=== PATIENT | female | born 1965 | race Hispanic/Latino ===

== ENCOUNTER 2018-09-05 00:41 | Inpatient (IN) | payer OTHER, SELFPAY ==
[2018-09-05] MEDS ORDERED: CARDIZEM IV ONE ×2 (02:32→03:34)
--- NOTE | 2018-09-05 02:38 | Emergency Department Report ---
HPI - General Chief Complaint: Chest Pain Time Seen by Provider: 09/05/18 02:24 - HPI HPI: Room 3 The patient is a 52-year-old female presenting with a chief complaint of chest pain and palpitations. The patient states approximately 3 hours prior to her arrival she began developing palpitations associated with chest pain described as aching and tightness in nature. Patient states her left arm went numb and she experienced shortness of breath. Patient denies nausea/vomiting or diaphoresis. Patient states she's never been diagnosed with atrial fibrillation in the past. Patient states she's never had a stress test or cardiac catheterization Location: Chest Duration: Onset 3 hours prior to arrival Quality: Aching Severity: Moderate Modifying factors: [see above] Context: [see above] Mode of transportation: [not driving] ED Past Medical Hx - Past Medical History Hx Hypertension: Yes - Surgical History Hx Cholecystectomy: Yes - Family History Family history: no significant - Social History Smoking Status: Current Every Day Smoker (1/2 pack per day) Substance Use Type: None (denies illicit drug use) ED Review of Systems ROS: Stated complaint: CP/R ARM NUMBNESS Other details as noted in HPI Constitutional: denies: diaphoresis Eyes: denies: eye pain ENT: denies: throat pain Respiratory: shortness of breath Cardiovascular: chest pain, palpitations Endocrine: no symptoms reported Gastrointestinal: denies: nausea, vomiting Genitourinary: denies: dysuria Musculoskeletal: denies: back pain Neurological: numbness. denies: headache Physical Exam - Physical Exam Vital Signs: Vital Signs 09/05/18 09/05/18 09/05/18 01:30 01:36 02:02 Temperature 97.9 F Pulse Rate 144 H 138 H 154 H Respiratory 14 14 15 Rate Blood Pressure 131/54 Blood Pressure 131/54 [Left] O2 Sat by Pulse 94 95 96 Oximetry Physical Exam: GENERAL: The patient is well-developed well-nourished female lying on stretcher not appearing to be in acute distress. [] HEENT: Normocephalic. Atraumatic. Extraocular motions are intact. Patient has moist mucous membranes. NECK: Supple. Trachea midline CHEST/LUNGS: Clear to auscultation. There is no respiratory distress noted. HEART/CARDIOVASCULAR: Irregularly irregular. There is tachycardia. There is no gallop rub or murmur. ABDOMEN: Abdomen is soft, nontender. Patient has normal bowel sounds. There is no abdominal distention. SKIN: There is no rash. There is no edema. There is no diaphoresis. NEURO: The patient is awake, alert, and oriented. The patient is cooperative. The patient has normal speech MUSCULOSKELETAL: There is no evidence of acute injury. ED Course Vital Signs 09/05/18 09/05/18 09/05/18 01:30 01:36 02:02 Temperature 97.9 F Pulse Rate 144 H 138 H 154 H Respiratory 14 14 15 Rate Blood Pressure 131/54 Blood Pressure 131/54 [Left] O2 Sat by Pulse 94 95 96 Oximetry ED Medical Decision Making - Lab Data Result diagrams: 09/05/18 02:34 09/05/18 02:34 Laboratory Tests 09/05/18 09/05/18 09/05/18 02:34 02:34 02:34 WBC 9.5 RBC 4.58 Hgb 13.4 Hct 39.8 MCV 87 MCH 29 MCHC 34 RDW 14.8 Plt Count 194 Lymph % (Auto) 31.4 [place] % (Auto) 5.3 Eos % (Auto) 3.4 Baso % (Auto) 0.7 Lymph # 3.0 [place] # 0.5 Eos # 0.3 Baso # 0.1 Seg Neutrophils % 59.2 Seg Neutrophils # 5.6 PT 13.0 INR 0.93 APTT 21.6 L Sodium Potassium Chloride Carbon Dioxide Anion Gap BUN Creatinine Estimated GFR BUN/Creatinine Ratio Glucose Calcium Magnesium 2.00 Total Creatine Kinase 85 CK-MB (CK-2) 2.2 CK-MB (CK-2) Rel Index 2.5 Troponin T < 0.010 TSH Free T4 09/05/18 09/05/18 02:34 02:34 WBC RBC Hgb Hct MCV MCH MCHC RDW Plt Count Lymph % (Auto) [place] % (Auto) Eos % (Auto) Baso % (Auto) Lymph # Div[place] # Eos # Baso # Seg Neutrophils % Seg Neutrophils # PT INR APTT Sodium 142 Potassium 4.1 Chloride 104.1 Carbon Dioxide 24 Anion Gap 18 BUN 18 H Creatinine 0.8 Estimated GFR > 60 BUN/Creatinine Ratio 23 Glucose 119 H Calcium 9.4 Magnesium Total Creatine Kinase CK-MB (CK-2) CK-MB (CK-2) Rel Index Troponin T TSH 3.740 Free T4 1.60 H - EKG Data -: EKG Interpreted by Me Rate: tachycardia (157 bpm) - EKG Data When compared to previous EKG there are: previous EKG unavailable Interpretation: other (atrial fibrillation with a rapid ventricular response of 157 bpm) - Radiology Data Radiology results: report reviewed (chest x-ray), image reviewed (chest x-ray) interpreted by me: Chest x-ray-no focal infiltrates, no pneumothorax [facility] [address] [place] [address] XRay Report Signed Patient: ELAINE NOE MR#: [id number] 1 : 1965 Acct:[id number] Age/Sex: 52 / F ADM Date: 09/05/18 Loc: ED Attending Dr: Ordering Physician: GISEL RIOS MD Date of Service: 09/05/18 Procedure(s): XR chest 1V ap Accession Number(s): [id number] cc: GISEL RIOS MD Fluoro Time In Minutes: PROCEDURE: XR CHEST 1V AP TECHNIQUE: Chest radiograph single view. HISTORY: chest pain COMPARISONS: None . FINDINGS: Heart: Normal. Mediastinum/Vessels: Normal. Lungs/Pleural space: Normal. Bony thorax: No acute osseous abnormality. Life support devices: None. IMPRESSION: No acute cardiopulmonary abnormality. This document is electronically signed by Latoya Cano DO., September 05 2018 02:52:20 AM ET Transcribed By: [facility] Dictated By: LATOYA CANO MD Electronically Authenticated By: LATOYA CANO MD Signed Date/Time: 09/05/18253 DD/ 5 TD/TT: 09/05/18245 - Differential Diagnosis new-onset atrial fibrillation with a rapid ventricular response Critical care attestation.: If time is entered above; I have spent that time in minutes in the direct care of this critically ill patient, excluding procedure time. ED Disposition Clinical Impression: New onset atrial fibrillation, Atrial fibrillation with rapid ventricular response, Chest pain Disposition: OP ADMIT IP TO THIS HOSP Is pt being admited?: Yes Does the pt Need Aspirin: Yes Condition: Fair Instructions: Chest Pain (ED) Referrals: [facility] MD PORFIRIO [Primary Care Provider] - 3-5 Days Time of Disposition: 03:35 (hospitalist paged (Dr Fish))
[2018-09-05] MEDS ORDERED: ASPIRIN PO ONE (02:39)
[2018-09-05 02:49] LABS: Basophils # (Auto) 0.1 K/mm3 (0.0-0.1); Basophils % (Auto) 0.7 % (0.0-1.8); Eosinophils # (Auto) 0.3 K/mm3 (0.0-0.4); Eosinophils % (Auto) 3.4 % (0.0-4.3); Hematocrit 39.8 % (30.3-42.9); Hemoglobin 13.4 gm/dl (10.1-14.3); Lymphocytes % (Auto) 31.4 % (13.4-35.0); Mean Corpuscular HGB Conc 34 % (30-34); Mean Corpuscular Volume 87 fl (79-97); Monocytes # (Auto) 0.5 K/mm3 (0.0-0.8); Monocytes % (Auto) 5.3 % (0.0-7.3); Platelet Count 194 K/mm3 (140-440); Red Blood Count 4.58 M/mm3 (3.65-5.03); Red Cell Distribution Width 14.8 % (13.2-15.2)
--- NOTE | 2018-09-05 02:54 | XRay Report ---
PROCEDURE: XR CHEST 1V AP TECHNIQUE: Chest radiograph single view. HISTORY: chest pain COMPARISONS: None . FINDINGS: Heart: Normal. Mediastinum/Vessels: Normal. Lungs/Pleural space: Normal. Bony thorax: No acute osseous abnormality. Life support devices: None. IMPRESSION: No acute cardiopulmonary abnormality. This document is electronically signed by Latoya Cano DO., September 05 2018 02:52:20 AM ET
[2018-09-05 02:57] LABS: INR 0.93 (0.87-1.13)
[2018-09-05 02:58] LABS: Partial Thromboplastin Time 21.6 Sec. (24.2-36.6)
[2018-09-05 03:11] LABS: Creatine Kinase MB 2.2 ng/mL (0.0-4.0)
[2018-09-05 03:18] LABS: Free T4 (Free Thyroxine) 1.6 ng/dL (0.76-1.46)
[2018-09-05 03:31] LABS: BUN/Creatinine Ratio 23; Blood Urea Nitrogen 18 mg/dL (7-17); Calcium 9.4 mg/dL (8.4-10.2); Hemolysis Index 7
[2018-09-05] MEDS: CARDIZEM 100 MG in D5W 80 ML IV SCH ×3 (04:14→22:25)
[2018-09-05] MEDS ORDERED: TYLENOL PO PRN (04:22)
[2018-09-05] MEDS ORDERED: ZOFRAN IV PRN (04:22)
[2018-09-05] MEDS ORDERED: SODIUM CHLORIDE FLUSH SYRINGE 10 ML IV PRN (04:22)
[2018-09-05] MEDS ORDERED: MORPHINE IV PRN (04:22)
[2018-09-05] MEDS ORDERED: NORCO 5/325 PO PRN (04:22)
--- NOTE | 2018-09-05 04:41 | History and Physical Report ---
History of Present Illness Date of examination: 09/05/18 Chief complaint: Palpitation History of present illness: There is a 52-year-old female with history of hypertension who presen twan to the ED on account of few hours history of palpitation. She has associated mid-sternal pain, tingling in the left arm and shortness of breath. She denies diaphoresis, fever, chills, cough, sore throat, runny nose or congestion, leg swelling, orthopnea or PND. No headaches, nausea, vomiting, lightheadedness, syncope or loss of consciousness. No abdominal pain, constipation, diarrhea, dysuria or frequency. Patient stated that few years ago, she had palpitation which went away without seeking medical help. Past History Past Medical History: hypertension, other (morbid obesity) Past Surgical History: cholecystectomy, Other (tubal ligation) Social history: smoking (patient has been smoking cigarettes for 15 years. She currently smokes 1-2 packs per day), other (she denies alcohol or illicit drug use) Family history: other (reviewed and noncontributory) Medications and Allergies Allergies Allergy/AdvReac Type Severity Reaction Status Date / Time Sulfa (Sulfonamide Allergy Swelling Verified 09/05/18 00:42 Antibiotics) Active Meds: Active Medications Acetaminophen (Tylenol) 650 mg PO Q4H PRN PRN Reason: Pain MILD(1-3)/Fever >100.5/MCKENNA Acetaminophen/Hydrocodone Bitart ([place] 5/325) 1 each PO Q6H PRN PRN Reason: Pain, Moderate (4-6) Enoxaparin Sodium (Lovenox) 40 mg SUB-Q QDAY MAURISIO Diltiazem HCl 100 mg/ Dextrose 100 mls @ 5 mls/hr IV DIRECT MAURISIO; Protocol Last Infusion: 09/05/18 04:33 Dose: 10 mg/hr, 10 mls/hr Documented by: Morphine Sulfate (Morphine) 2 mg IV Q4H PRN PRN Reason: Pain, Moderate (4-6) Ondansetron HCl (Zofran) 4 mg IV Q8H PRN PRN Reason: Nausea And Vomiting Sodium Chloride (Sodium Chloride Flush Syringe 10 Ml) 10 ml IV BID MAURISIO Sodium Chloride (Sodium Chloride Flush Syringe 10 Ml) 10 ml IV PRN PRN PRN Reason: LINE FLUSH Review of Systems All systems: negative (except as documented in the HPI, all other systems were reviewed and negative) Exam - Constitutional Vitals: Temp Pulse Resp BP Pulse Ox 97.9 F 113 H 18 113/56 93 09/05/18 01:36 09/05/18 04:16 09/05/18 04:16 09/05/18 04:16 09/05/18 04:16 General appearance: Present: no acute distress, obese - EENT Eyes: Present: PERRL, EOM intact ENT: hearing intact, clear oral mucosa - Neck Neck: Present: supple, normal ROM - Respiratory Respiratory effort: normal Respiratory: bilateral: CTA - Cardiovascular Rhythm: irregularly irregular Heart Sounds: Present: S1 & S2. Absent: rub, click - Extremities Extremity abnormal: edema (trace edema in bilateral lower extremities) Peripheral Pulses: within normal limits - Abdominal General gastrointestinal: Present: soft, non-tender, non-distended, normal bowel sounds Female genitourinary: Present: deferred - Integumentary Integumentary: Present: clear, warm, dry - Musculoskeletal Musculoskeletal: gait normal, strength equal bilaterally - Psychiatric Psychiatric: appropriate mood/affect, intact judgment & insight - Neurologic Neurologic: CNII-XII intact, moves all extremities Results - Labs CBC & Chem 7: 09/05/18 02:34 09/05/18 02:34 Labs: Laboratory Last Values WBC 9.5 K/mm3 (4.5-11.0) 09/05/18 02:34 RBC 4.58 M/mm3 (3.65-5.03) 09/05/18 02:34 Hgb 13.4 gm/dl (10.1-14.3) 09/05/18 02:34 Hct 39.8 % (30.3-42.9) 09/05/18 02:34 MCV 87 fl (79-97) 09/05/18 02:34 MCH 29 pg (28-32) 09/05/18 02:34 MCHC 34 % (30-34) 09/05/18 02:34 RDW 14.8 % (13.2-15.2) 09/05/18 02:34 Plt Count 194 K/mm3 (140-440) 09/05/18 02:34 Lymph % (Auto) 31.4 % (13.4-35.0) 09/05/18 02:34 [place] % (Auto) 5.3 % (0.0-7.3) 09/05/18 02:34 Eos % (Auto) 3.4 % (0.0-4.3) 09/05/18 02:34 Baso % (Auto) 0.7 % (0.0-1.8) 09/05/18 02:34 Lymph # 3.0 K/mm3 (1.2-5.4) 09/05/18 02:34 [place] # 0.5 K/mm3 (0.0-0.8) 09/05/18 02:34 Eos # 0.3 K/mm3 (0.0-0.4) 09/05/18 02:34 Baso # 0.1 K/mm3 (0.0-0.1) 09/05/18 02:34 Seg Neutrophils % 59.2 % (40.0-70.0) 09/05/18 02:34 Seg Neutrophils # 5.6 K/mm3 (1.8-7.7) 09/05/18 02:34 PT 13.0 Sec. (12.2-14.9) 09/05/18 02:34 INR 0.93 (0.87-1.13) 09/05/18 02:34 APTT 21.6 Sec. (24.2-36.6) L 09/05/18 02:34 Sodium 142 mmol/L (137-145) 09/05/18 02:34 Potassium 4.1 mmol/L (3.6-5.0) 09/05/18 02:34 Chloride 104.1 mmol/L (98-107) 09/05/18 02:34 Carbon Dioxide 24 mmol/L (22-30) 09/05/18 02:34 Anion Gap 18 mmol/L 09/05/18 02:34 BUN 18 mg/dL (7-17) H 09/05/18 02:34 Creatinine 0.8 mg/dL (0.7-1.2) 09/05/18 02:34 Estimated GFR > 60 ml/min 09/05/18 02:34 BUN/Creatinine Ratio 23 % 09/05/18 02:34 Glucose 119 mg/dL (65-100) H 09/05/18 02:34 Calcium 9.4 mg/dL (8.4-10.2) 09/05/18 02:34 Magnesium 2.00 mg/dL (1.7-2.3) 09/05/18 02:34 Total Creatine Kinase 85 units/L (30-135) 09/05/18 02:34 CK-MB (CK-2) 2.2 ng/mL (0.0-4.0) 09/05/18 02:34 CK-MB (CK-2) Rel Index 2.5 (0-4) 09/05/18 02:34 Troponin T < 0.010 ng/mL (0.00-0.029) 09/05/18 02:34 TSH 3.740 mlU/mL (0.270-4.200) 09/05/18 02:34 Free T4 1.60 ng/dL (0.76-1.46) H 09/05/18 02:34 Assessment and Plan Assessment and plan: New onset atrial fibrillation with RVR -Status post IV Cardizem bolus 2 -On IV Cardizem drip -Echocardiogram pending -Cardiology consulted Hypertension -Currently controlled on Cardizem drip Hyperglycemia -Hba1c level pending Morbid obesity with BMI of 44.1 -Lifestyle modification recommended Tobacco abuse -Patient counseled on cessation -She declined nicotine patch DVT prophylaxis with Lovenox Disposition: I spent 45 minutes providing critical care to this seriously ill patient who requires frequent reassessments of her cardiovascular status
[2018-09-05] MEDS: LOVENOX SUB-Q SCH (08:20)
--- NOTE | 2018-09-05 09:19 | Event Note ---
Date: 09/05/18 Patient was admitted today for new onset atrial fibrillation with rapid ventricular response was seen and examined. We'll follow up with present management with cardiozem gtt.. Mild Hyperthyroidism Noted. May be underlying cause of Afib with RVR. We'll Obtain Anti-thyroid Globulin antibody. Would Repeat T4. If Still Elevated, will commence pt on methimazole. Endocrinology consult desirable can be obtained.
[2018-09-05] MEDS: SODIUM CHLORIDE FLUSH SYRINGE 10 ML IV SCH ×2 (11:00→22:00)
[2018-09-05] MEDS ORDERED: CORDARONE 150 MG in D5W 100 ML IV ONE (12:45)
--- NOTE | 2018-09-05 12:53 | Consultation ---
History of Present Illness Consult date: 09/05/18 Consult reason: atrial fibrillation History of present illness: The patient is a 52-year-old woman with a history of hypertension, no prior cardiac history. She presents to the emergency room with sudden onset of palpitations and lightheadedness which began yesterday. In the emergency room, ECG was rapid atrial fibrillation. He was placed on intravenous Cardizem, with successful rate slowing, but currently still remains in atrial fibrillation. There is no chest pain or shortness of breath, no lower extremity edema, she den ies alcohol or high caffeine beverage intake. On this presentation, her TSH is normal at 3.7. Past History Past Medical History: hypertension, other (obesity) Past Surgical History: cholecystectomy, Other (tubal ligation) Social history: smoking (patient has been smoking cigarettes for 15 years. She currently smokes 1-2 packs per day), other (she denies alcohol or illicit drug use) Family history: other (reviewed and noncontributory) Medications and Allergies Allergies Allergy/AdvReac Type Severity Reaction Status Date / Time Sulfa (Sulfonamide Allergy Swelling Verified 09/05/18 00:42 Antibiotics) Active Meds: Active Medications Acetaminophen (Tylenol) 650 mg PO Q4H PRN PRN Reason: Pain MILD(1-3)/Fever >100.5/MCKENNA Acetaminophen/Hydrocodone Bitart ([place] 5/325) 1 each PO Q6H PRN PRN Reason: Pain, Moderate (4-6) Amiodarone HCl (Cordarone) 200 mg PO BID MAURISIO Aspirin (Halfprin Ec) 81 mg PO QDAY MAURISIO Enoxaparin Sodium (Lovenox) 40 mg SUB-Q QDAY MAURISIO Amiodarone HCl 150 mg/ (Dextrose) 103 mls @ 600 mls/hr IV ONCE ONE Stop: 09/05/18 12:55 Diltiazem HCl 100 mg/ Dextrose 100 mls @ 5 mls/hr IV DIRECT MAURISIO; Protocol Metoprolol Tartrate (Lopressor) 5 mg IV Q6HR PRN PRN Reason: HR >130 Morphine Sulfate (Morphine) 2 mg IV Q4H PRN PRN Reason: Pain, Moderate (4-6) Ondansetron HCl (Zofran) 4 mg IV Q8H PRN PRN Reason: Nausea And Vomiting Sodium Chloride (Sodium Chloride Flush Syringe 10 Ml) 10 ml IV BID MAURISIO Sodium Chloride (Sodium Chloride Flush Syringe 10 Ml) 10 ml IV PRN PRN PRN Reason: LINE FLUSH Review of Systems Cardiovascular: palpitations, rapid/irregular heart beat, lightheadedness, no chest pain, no orthopnea, no edema, no syncope, no shortness of breath Physical Examination Vital Signs Pulse Resp BP Pulse Ox 144 H 14 131/54 94 09/05/18 01:30 09/05/18 01:30 09/05/18 01:30 09/05/18 01:30 General appearance: no acute distress HEENT: Positive: PERRL Neck: Positive: neck supple Cardiac: Positive: irregularly irregular Lungs: Positive: clear to auscultation Neuro: Positive: Grossly Intact Abdomen: Positive: Soft Female genitourinary: deferred Skin: Positive: Clear Extremities: Absent: edema Results 09/05/18 02:34 09/05/18 02:34 Cardiac Enzymes 09/05/18 Range/Units 02:34 CK-MB (CK-2) 2.2 (0.0-4.0) ng/mL Coagulation 09/05/18 Range/Units 02:34 PT 13.0 (12.2-14.9) Sec. INR 0.93 (0.87-1.13) APTT 21.6 L (24.2-36.6) Sec. CBC 09/05/18 Range/Units 02:34 WBC 9.5 (4.5-11.0) K/mm3 RBC 4.58 (3.65-5.03) M/mm3 Hgb 13.4 (10.1-14.3) gm/dl Hct 39.8 (30.3-42.9) % Plt Count 194 (140-440) K/mm3 Lymph # 3.0 (1.2-5.4) K/mm3 [place] # 0.5 (0.0-0.8) K/mm3 Eos # 0.3 (0.0-0.4) K/mm3 Baso # 0.1 (0.0-0.1) K/mm3 Comprehensive Metabolic Panel 09/05/18 Range/Units 02:34 Sodium 142 (137-145) mmol/L Potassium 4.1 (3.6-5.0) mmol/L Chloride 104.1 (98-107) mmol/L Carbon Dioxide 24 (22-30) mmol/L BUN 18 H (7-17) mg/dL Creatinine 0.8 (0.7-1.2) mg/dL Glucose 119 H (65-100) mg/dL Calcium 9.4 (8.4-10.2) mg/dL EKG interpretations - Telemetry EKG Rhythm: Atrial Fibrillation Assessment and Plan - Patient Problems (1) Atrial fibrillation with rapid ventricular response Current Visit: Yes Status: Acute Plan to address problem: We will continue Cardizem for rate control, and amiodarone, and aspirin. Echocardiogram for atrial size and left ventricular function assessment. Further cardiac evaluation and management will depend on clinical course.
[2018-09-05] MEDS ORDERED: BABY ASPIRIN ONE (13:55)
[2018-09-05] MEDS: HALFPRIN EC PO SCH (14:20)
[2018-09-05] MEDS: CORDARONE PO SCH ×2 (14:31→21:30)
[2018-09-05] MEDS ORDERED: LOPRESSOR IV ONE (18:42)
[2018-09-05] MEDS: LOPRESSOR IV PRN (18:44)
[2018-09-06] MEDS: LOPRESSOR IV PRN ×2 (01:00→07:26)
[2018-09-06] MEDS ORDERED: LOPRESSOR IV ONE ×2 (01:08→07:15)
[2018-09-06] MEDS: CARDIZEM 100 MG in D5W 80 ML IV SCH (01:33)
[2018-09-06] MEDS ORDERED: CORDARONE 150 MG in D5W 97 ML IV ONE (01:52)
[2018-09-06] MEDS ORDERED: CORDARONE 900 MG in D5W 482 ML IV SCH (02:00)
[2018-09-06 04:10] LABS: BUN/Creatinine Ratio 16; Blood Urea Nitrogen 11 mg/dL (7-17); Calcium 9.4 mg/dL (8.4-10.2); Hemolysis Index 1
[2018-09-06] MEDS: SODIUM CHLORIDE FLUSH SYRINGE 10 ML IV SCH ×2 (10:57→21:41)
[2018-09-06] MEDS ORDERED: BABY ASPIRIN ONE (11:03)
[2018-09-06] MEDS ORDERED: LOVENOX SUB-Q ONE (11:03)
[2018-09-06] MEDS: LOVENOX SUB-Q SCH (11:11)
[2018-09-06] MEDS: HALFPRIN EC PO SCH (11:11)
--- NOTE | 2018-09-06 11:13 | Progress Note ---
Assessment and Plan - New onset A. fib with RVR Patient on Cardizem drip with when necessary metoprolol Rates controlled with occasional outbursts of RVR Cardiology consulted on following. Input appreciated - Hypertension Controlled 2 g sodium diet - Hypoglycemia secondary to prediabetic state A1c is 5.9 - Elevated T4 Minimal elevation Follow UP with antithyroiglobulin andtibodies - Tobacco use disorder Counseling on tobacco cessation Done Subjective Date of service: 09/06/18 Principal diagnosis: Afib with RVR, HTN, Hyperglycemia Interval history: Patient seen and examined it. Denies any chest pain. Shortness of breath. Objective - Exam Narrative Exam: Constitutional: Well-nourished well-developed. In no distress Head: Normocephalic atraumatic Eyes: Pupils are equal round and reactive to light Nose: No enlarged turbinates, no septal deviation. Mouth: Moist mucous membranes. Neck: Supple no thyromegaly. No bruit. No JVD Heart: Irregularly irregular. No rubs murmurs or gallop Lungs: Clear to auscultation bilaterally. no rales or rhonchi Abdomen: Soft, nontender. Bowel sound are present. Extremities: No edema, no cyanosis, no clubbing. Neuro: Alert oriented Oriented x3. No focal sensory or motor deficit. Skin: No rashes or hyperpigmented spots Musculoskeletal system: No joint pain or swelling Hematological: No petechia or subcutanous hemorrhages. Immunological: No multiple septic spots on the skin Lymphatic: No generalized lymphadenopathy Psychiatry: Euthymic. Calm. - Constitutional Vitals: Vital Signs - 12hr 09/06/18 09/06/18 09/06/18 00:00 01:00 02:00 Temperature Pulse Rate 134 H 144 H 117 H Respiratory 22 22 15 Rate Blood Pressure 122/74 118/78 118/78 Blood Pressure [Left] O2 Sat by Pulse 91 96 89 Oximetry 09/06/18 09/06/18 09/06/18 03:00 06:02 07:00 Temperature 98.8 F Pulse Rate 104 H 147 H 114 H Respiratory 19 15 20 Rate Blood Pressure 118/78 111/84 111/84 Blood Pressure 151/66 [Left] O2 Sat by Pulse 93 97 100 Oximetry 09/06/18 09/06/18 09/06/18 07:36 08:01 09:00 Temperature 97.8 F Pulse Rate 69 70 Respiratory 18 20 18 Rate Blood Pressure Blood Pressure 124/68 106/76 [Left] O2 Sat by Pulse 98 99 99 Oximetry 09/06/18 10:52 Temperature Pulse Rate 126 H Respiratory 18 Rate Blood Pressure Blood Pressure 116/93 [Left] O2 Sat by Pulse 99 Oximetry - Labs CBC & Chem 7: 09/05/18 02:34 09/06/18 03:40 Labs: Abnormal lab results 09/06/18 Range/Units 03:40 Glucose 129 H (65-100) mg/dL
[2018-09-06] MEDS: CORDARONE PO SCH ×2 (12:00→21:41)
--- NOTE | 2018-09-06 14:21 | Progress Note ---
Assessment and Plan - Patient Problems (1) Atrial fibrillation with rapid ventricular response Current Visit: Yes Status: Acute Plan to address problem: The patient overnight developed recurrent runs of wide complex tachycardia, appears to be atrial fibrillation with aberrant conduction, but recurrent ventricular tachycardia cannot be excluded. In addition, echocardiogram shows four-chamber cardiomyopathy with significant dilatation of both atria, and left ventricular ejection fraction 30-40%. It would indicate the presence of chronic cardiomyopathy and perhaps long-standing paroxysmal or persistent atrial fibrillation. We'll proceed with a diagnostic cardiac catheterization in a.m. Following ischemic disease workup, we will plan for ERIN guided cardioversion if atrial fibrillation persists on medical therapy. Subjective Date of service: 09/06/18 Principal diagnosis: Afib with RVR, HTN, Hyperglycemia Interval history: The patient overnight developed recurrent runs of wide complex tachycardia, appears to be atrial fibrillation with aberrant conduction, but recurrent ventricular tachycardia cannot be excluded. In addition, echocardiogram shows four-chamber cardiomyopathy with significant dilatation of both atria, and left ventricular ejection fraction 30-40%. It would indicate the presence of chronic cardiomyopathy and perhaps long-standing paroxysmal or persistent atrial fibrillation. Objective Vital Signs Temp Pulse Resp BP BP Pulse Ox 09/06/18 10:52 126 H 18 116/93 99 09/06/18 09:00 70 18 106/76 99 09/06/18 08:01 97.8 F 69 20 124/68 99 09/06/18 07:36 18 98 09/06/18 07:00 98.8 F 114 H 20 111/84 151/66 100 09/06/18 06:02 147 H 15 111/84 97 09/06/18 03:00 104 H 19 118/78 93 09/06/18 02:00 117 H 15 118/78 89 09/06/18 01:00 144 H 22 118/78 96 09/06/18 00:00 134 H 22 122/74 91 09/05/18 23:00 146 H 22 119/81 98 09/05/18 22:25 157 H 118/73 09/05/18 22:00 144 H 17 119/81 92 09/05/18 21:00 144 H 12 99/87 97 09/05/18 20:00 115 H 17 98/81 95 09/05/18 19:00 122 H 18 122/36 95 09/05/18 18:48 109 H 20 122/36 93 09/05/18 18:44 147 H 133/74 09/05/18 18:00 137 H 20 140/98 97 09/05/18 17:00 154 H 13 122/75 96 09/05/18 16:00 142 H 13 131/98 96 09/05/18 15:00 146 H 19 134/74 93 - Physical Examination General: No Apparent Distress HEENT: Positive: PERRL Neck: Positive: neck supple Cardiac: Positive: irregularly irregular Lungs: Positive: Decreased Breath Sounds Neuro: Positive: Grossly Intact Abdomen: Positive: Soft Skin: Positive: Clear Extremities: Absent: edema - Labs and Meds Comprehensive Metabolic Panel 09/06/18 Range/Units 03:40 Sodium 138 (137-145) mmol/L Potassium 4.2 (3.6-5.0) mmol/L Chloride 100.7 (98-107) mmol/L Carbon Dioxide 25 (22-30) mmol/L BUN 11 (7-17) mg/dL Creatinine 0.7 (0.7-1.2) mg/dL Glucose 129 H (65-100) mg/dL Calcium 9.4 (8.4-10.2) mg/dL
[2018-09-06] MEDS ORDERED: NACL 0.9% 500 ML 500 ML IV SCH (15:00)
[2018-09-07] MEDS: HALFPRIN EC PO SCH (08:25)
[2018-09-07] MEDS ORDERED: NACL 0.9% 500 ML 500 ML ONE (08:45)
[2018-09-07] MEDS ORDERED: HALFPRIN EC PO ONE (08:46)
[2018-09-07] MEDS ORDERED: HEPARIN/NS 5000 UNIT/500ML(CATH LAB) 1,000 ML IR ONE (08:56)
[2018-09-07] MEDS ORDERED: XYLOCAINE 2% INFILTRATI ONE (08:56)
[2018-09-07] MEDS ORDERED: HEPARIN 10,000 UNITS/10 ML ONE (08:56)
[2018-09-07] MEDS ORDERED: NITROGLYCERIN SYRINGE 0 ML ONE (08:57)
[2018-09-07] MEDS ORDERED: NACL 0.9% 500 ML 500 ML IV SCH (09:00)
[2018-09-07] MEDS ORDERED: VERSED ONE (09:13)
[2018-09-07] MEDS ORDERED: SUBLIMAZE ONE (09:13)
[2018-09-07] MEDS ORDERED: LOPRESSOR IV ONE (09:42)
[2018-09-07] MEDS: LOVENOX SUB-Q SCH (10:16)
--- NOTE | 2018-09-07 10:21 | Event Note ---
Date: 09/07/18 Cardiac catheterization was completed, no complications. Findings: Angiographically normal coronary arteries. Severe dilated cardiomyopathy with left ventricular ejection fraction 20-25%. The severity of the cardiomyopathy on angiography is likely exaggerated by the ongoing tachycardia during contrast injection. Recommendations: Medical therapy to include amiodarone, metoprolol, digoxin, lisinopril. Begin oral anticoagulation with Eliquis. Stop Lovenox. Schedule patient for ERIN guided cardioversion tomorrow.
--- NOTE | 2018-09-07 10:24 | Cardiac Catherization Report ---
CARDIAC CATHETERIZATION REASON FOR PROCEDURE: The patient is a 52-year-old woman who presented with symptomatic rapid atrial fibrillation. She was placed on medical therapy for atrial fibrillation, further evaluation demonstrated a dilated four chamber cardiomyopathy. She is recommended for heart catheterization for further evaluation of heart failure. PROCEDURE: 1. Left heart catheterization. 2. Selective left and right coronary angiography. 3. Left ventricular angiography. 4. Sedation time start 09:33, end 09:44. The patient was prepped and draped in a sterile fashion after informed consent. The right femoral artery was entered using Seldinger technique followed by placement of a 6-[place] sheath. Selective left and right coronary angiography was performed using #4 right and left Ambrose catheters. The right Ambrose was used for left ventricle angiography. The catheters were removed, sheath removed, and hemostasis achieved using an Angio-Seal device. The patient was returned to the postprocedure unit in stable condition. There were no complications. FINDINGS: HEMODYNAMICS: Left ventricular end diastolic pressure was 20, following coronary angiography. Ascending aortic pressure was 138/70. There was no significant pressure gradient on pullback across the aortic valve. CORONARY ANGIOGRAPHY: The left main coronary artery was angiographically normal. The left anterior descending artery and its diagonal branches were free of significant disease. The circumflex artery and its obtuse marginal branches were similarly free of significant disease. The right coronary artery was dominant and angiographically normal. There was a dilated left ventricle, with diffuse hypokinesis, left ventricular ejection fraction estimated at 20-25%. The left ventricular systolic dysfunction is likely an over estimation in severity due to the presence of an irregular tachycardia during the left ventricle contrast angiography. RECOMMENDATION: Medical therapy for nonischemic cardiomyopathy, risk factor modification. JOB# [id number] CA/NTS
[2018-09-07] MEDS ORDERED: NACL 0.9% 1000 ML 1,000 ML IV SCH (11:00)
[2018-09-07] MEDS: CORDARONE PO SCH ×2 (11:02→21:03)
[2018-09-07] MEDS: LANOXIN IV SCH ×2 (11:21→16:57)
[2018-09-07] MEDS: LOPRESSOR PO SCH ×2 (11:24→18:51)
[2018-09-07] MEDS: SODIUM CHLORIDE FLUSH SYRINGE 10 ML IV SCH ×2 (11:24→21:06)
[2018-09-07] MEDS: ZESTRIL PO SCH (11:25)
--- NOTE | 2018-09-07 17:29 | Progress Note ---
Assessment and Plan Patient is a 52-year-old female with history of hypertension who presented to the ED on account of few hours history of palpitation. She has associated mid-sternal pain, tingling in the left arm and shortness of breath. She denies diaphoresis, fever, chills, cough, sore throat, runny nose or congestion, leg swelling, orthopnea or PND. No headaches, nausea, vomiting, lightheadedness, syncope or loss of consciousness. No abdominal pain, constipation, diarrhea, dysuria or frequency. Patient stated that few years ago, she had palpitation which went away without seeking medical help. - New onset A. fib with RVR Pt commenced on medical therapy to include Amiodorone, Metoprolol Digoxin, Rates controlled with occasional outbursts of RVR Cardiology consulted and following. Input appreciated - Hypertension Controlled 2 g sodium diet Failure well-controlled - Hypoglycemia secondary to prediabetic state A1c is 5.9 - Elevated T4 Minimal elevation Follow UP with antithyroiglobulin andtibodies F/u with php developer - Tobacco use disorder Counseling on tobacco cessation Done Subjective Date of service: 09/07/18 Principal diagnosis: Afib with RVR, HTN, Hyperglycemia Interval history: Patient seen and examined it. Denies any chest pain. Shortness of breath. Has occasional palpitation still has occasional palpitaion Objective - Exam Narrative Exam: Constitutional: Well-nourished well-developed. In no distress Head: Normocephalic atraumatic Eyes: Pupils are equal round and reactive to light Nose: No enlarged turbinates, no septal deviation. Mouth: Moist mucous membranes. Neck: Supple no thyromegaly. No bruit. No JVD Heart: Irregularly irregular. No rubs murmurs or gallop Lungs: Clear to auscultation bilaterally. no rales or rhonchi Abdomen: Soft, nontender. Bowel sound are present. Extremities: No edema, no cyanosis, no clubbing. Neuro: Alert oriented Oriented x3. No focal sensory or motor deficit. Skin: No rashes or hyperpigmented spots Musculoskeletal system: No joint pain or swelling Hematological: No petechia or subcutanous hemorrhages. Immunological: No multiple septic spots on the skin Lymphatic: No generalized lymphadenopathy Psychiatry: Euthymic. Calm. - Constitutional Vitals: Vital Signs - 12hr 04/06/2709/07/18 09/07/18 11:18 11:21 11:24 Temperature 97.6 F Pulse Rate 177 H 177 H Blood Pressure 114/91 09/07/18 09/07/18 11:25 16:57 Temperature Pulse Rate 177 H 90 Blood Pressure - Labs CBC & Chem 7: 09/05/18 02:34 09/06/18 03:40
[2018-09-07] MEDS: ELIQUIS PO SCH (21:03)
[2018-09-08] MEDS: LOPRESSOR PO SCH ×3 (02:20→20:58)
[2018-09-08] MEDS: CORDARONE PO SCH ×2 (09:45→21:01)
[2018-09-08] MEDS: SODIUM CHLORIDE FLUSH SYRINGE 10 ML IV SCH ×2 (09:45→21:02)
--- NOTE | 2018-09-08 10:18 | Progress Note ---
Assessment and Plan Assessment and plan: 52-year-old woman with past medical history hypertension, current every day smoker. She presented with chest pain and palpitations. Diagnoses A. fib with RVR Hypercoagulable state Acute systolic heart failure, EF 35% Plan Patient status post cath, 09/07/18, no significant stenosis noted The patient's heart rate has been labile, and how to control her medications. She is plan for ERIN and cardioversion today -TSH was normal -Medications been optimized per cardiology, on anticoagulation History Interval history: Review of systems Constitutional: No fevers, no malaise, no joint pains CVS: No chest pain, no orthopnea, no dyspnea on exertion, no pedal edema GI: No abdominal pain, no diarrhea, no vomiting, no constipation Respiratory: No shortness of breath, no wheezing, no coughing Hospitalist Physical - Physical exam Narrative exam: General.: Appears well, no distress, nontoxic HEENT: Moist mucous membranes, extraocular muscles intact, no lymphadenopathy Neck: supple Cardiac: S1-S2 heard Lungs: clear to auscultation bilaterally Abdomen: soft , nontender, nondistended, bowel sounds positive Extremities: no edema clubbing or cyanosis Skin: no rash or lesions Neurologic: no gross focal deficits Psych: calm, and cooperative - Constitutional Vitals: Temp Pulse Resp BP Pulse Ox 97.6 F 75 18 132/64 95 09/08/18 07:50 09/08/18 05:25 09/08/18 07:50 09/08/18 07:50 09/08/18 05:25 General appearance: Present: no acute distress Results - Labs CBC & Chem 7: 09/05/18 02:34 09/06/18 03:40 Labs: Laboratory Last Values WBC 9.5 K/mm3 (4.5-11.0) 09/05/18 02:34 RBC 4.58 M/mm3 (3.65-5.03) 09/05/18 02:34 Hgb 13.4 gm/dl (10.1-14.3) 09/05/18 02:34 Hct 39.8 % (30.3-42.9) 09/05/18 02:34 MCV 87 fl (79-97) 09/05/18 02:34 MCH 29 pg (28-32) 09/05/18 02:34 MCHC 34 % (30-34) 09/05/18 02:34 RDW 14.8 % (13.2-15.2) 09/05/18 02:34 Plt Count 194 K/mm3 (140-440) 09/05/18 02:34 Lymph % (Auto) 31.4 % (13.4-35.0) 09/05/18 02:34 [place] % (Auto) 5.3 % (0.0-7.3) 09/05/18 02:34 Eos % (Auto) 3.4 % (0.0-4.3) 09/05/18 02:34 Baso % (Auto) 0.7 % (0.0-1.8) 09/05/18 02:34 Lymph # 3.0 K/mm3 (1.2-5.4) 09/05/18 02:34 [place] # 0.5 K/mm3 (0.0-0.8) 09/05/18 02:34 Eos # 0.3 K/mm3 (0.0-0.4) 09/05/18 02:34 Baso # 0.1 K/mm3 (0.0-0.1) 09/05/18 02:34 Seg Neutrophils % 59.2 % (40.0-70.0) 09/05/18 02:34 Seg Neutrophils # 5.6 K/mm3 (1.8-7.7) 09/05/18 02:34 PT 13.0 Sec. (12.2-14.9) 09/05/18 02:34 INR 0.93 (0.87-1.13) 09/05/18 02:34 APTT 21.6 Sec. (24.2-36.6) L 09/05/18 02:34 Sodium 138 mmol/L (137-145) 09/06/18 03:40 Potassium 4.2 mmol/L (3.6-5.0) 09/06/18 03:40 Chloride 100.7 mmol/L (98-107) 09/06/18 03:40 Carbon Dioxide 25 mmol/L (22-30) 09/06/18 03:40 Anion Gap 17 mmol/L 09/06/18 03:40 BUN 11 mg/dL (7-17) 09/06/18 03:40 Creatinine 0.7 mg/dL (0.7-1.2) 09/06/18 03:40 Estimated GFR > 60 ml/min 09/06/18 03:40 BUN/Creatinine Ratio 16 % 09/06/18 03:40 Glucose 129 mg/dL (65-100) H 09/06/18 03:40 Hemoglobin A1c 5.9 % (4-6) 09/05/18 04:56 Calcium 9.4 mg/dL (8.4-10.2) 09/06/18 03:40 Magnesium 2.00 mg/dL (1.7-2.3) 09/05/18 02:34 Total Creatine Kinase 85 units/L (30-135) 09/05/18 02:34 CK-MB (CK-2) 2.2 ng/mL (0.0-4.0) 09/05/18 02:34 CK-MB (CK-2) Rel Index 2.5 (0-4) 09/05/18 02:34 Troponin T < 0.010 ng/mL (0.00-0.029) 09/05/18 10:10 TSH 3.740 mlU/mL (0.270-4.200) 09/05/18 02:34 Free T4 1.60 ng/dL (0.76-1.46) H 09/05/18 02:34 Active Medications - Current Medications Current Medications: Generic Name Dose Route Start Last Admin Trade Name Freq PRN Reason Stop Dose Admin Acetaminophen 650 mg 09/05/18 04:22 Tylenol PO Q4H PRN Pain MILD(1-3)/Fever >100.5/MCKENNA Acetaminophen/Hydrocodone Bitart 1 each 09/05/18 04:22 [place] 5/325 PO Q6H PRN Pain, Moderate (4-6) Amiodarone HCl 200 mg 09/05/18 13:00 09/08/18 09:45 Cordarone PO 200 mg BID MAURISIO Administration Apixaban 5 mg 09/07/18 22:00 09/07/18 21:03 Eliquis PO 5 mg Q12HR MAURISIO Administration Protocol Aspirin 81 mg 09/05/18 13:00 09/07/18 08:25 Halfprin Ec PO 81 mg QDAY MAURISIO Administration Digoxin 0.25 mg 09/08/18 17:00 Lanoxin PO DAILY@1700 MAURISIO Sodium Chloride 500 mls @ 50 mls/hr 09/07/18 09:00 Nacl 0.9% 500 Ml IV DIRECT MAURISIO Lisinopril 5 mg 09/07/18 11:00 09/07/18 11:25 Zestril PO 5 mg QDAY MAURISIO Administration Metoprolol Tartrate 5 mg 09/05/18 12:45 09/06/18 07:26 Lopressor IV 5 mg Q6HR PRN Administration HR >130 Metoprolol Tartrate 50 mg 09/07/18 11:00 09/08/18 02:20 Lopressor PO 50 mg Q8H MAURISIO Administration Morphine Sulfate 2 mg 09/05/18 04:22 Morphine IV Q4H PRN Pain, Moderate (4-6) Ondansetron HCl 4 mg 09/05/18 04:22 Zofran IV Q8H PRN Nausea And Vomiting Sodium Chloride 10 ml 09/05/18 10:00 09/08/18 09:45 Sodium Chloride Flush Syringe 10 Ml IV 10 ml BID MAURISIO Administration Sodium Chloride 10 ml 09/05/18 04:22 Sodium Chloride Flush Syringe 10 Ml IV PRN PRN LINE FLUSH
--- NOTE | 2018-09-08 13:54 | Progress Note ---
Assessment and Plan - Patient Problems (1) Atrial fibrillation with rapid ventricular response Current Visit: Yes Status: Acute Plan to address problem: Patient will be scheduled for ERIN guided cardioversion tomorrow. (2) Dilated cardiomyopathy Current Visit: Yes Status: Acute Plan to address problem: Patient has a four-chamber dilated cardiomyopathy, cardiac catheterization sh owed normal coronaries, established a nonischemic cardiomyopathy. We'll continue guideline directed medical therapy. Subjective Date of service: 09/08/18 Principal diagnosis: Afib with RVR, HTN, Hyperglycemia Interval history: Patient looks and feels better, no chest pain, no shortness of breath and no palpitations. She remains in atrial fibrillation, now with better controlled rate. Objective Vital Signs Temp Pulse Resp BP Pulse Ox 09/08/18 10:00 101 H 18 09/08/18 07:50 97.6 F 18 132/64 09/08/18 07:40 97.7 F 18 121/55 09/08/18 05:25 98.1 F 75 20 105/60 95 09/08/18 00:46 106 H 09/07/18 23:58 97.9 F 58 L 20 110/49 97 09/07/18 20:58 97 09/07/18 20:14 97.8 F 56 L 18 111/71 96 09/07/18 20:13 20 09/07/18 18:51 114 H 09/07/18 16:57 90 - Physical Examination General: No Apparent Distress HEENT: Positive: PERRL Neck: Positive: neck supple Cardiac: Positive: irregularly irregular Lungs: Positive: clear to auscultation Neuro: Positive: Grossly Intact Abdomen: Positive: Soft Skin: Positive: Clear Extremities: Absent: edema
[2018-09-08] MEDS: HALFPRIN EC PO SCH (14:35)
[2018-09-08] MEDS: ELIQUIS PO SCH ×2 (14:35→21:01)
[2018-09-08] MEDS: ZESTRIL PO SCH (14:35)
[2018-09-08] MEDS: LANOXIN PO SCH (18:42)
[2018-09-09] MEDS: LOPRESSOR PO SCH ×2 (03:59→17:24)
[2018-09-09] MEDS ORDERED: XYLOCAINE MPF 2% ONE (07:44)
[2018-09-09] MEDS ORDERED: DIPRIVAN 10 MG/ML IV ONE ×2 (07:45)
[2018-09-09] MEDS ORDERED: HURRICAINE ONE 20% TOPICAL SPRAY MM NR (08:00)
[2018-09-09] MEDS ORDERED: NACL 0.9% 500 ML 500 ML IV SCH (08:00)
--- NOTE | 2018-09-09 08:14 | Anesthesia Consultation ---
Anesthesia Consult and Med Hx Date of service: 09/09/18 - Airway Anesthetic Teeth Evaluation: Good ROM Head & Neck: Adequate Mental/Hyoid Distance: Adequate Mallampati Class: Class II Intubation Access Assessment: Good - Pulmonary Exam CTA: Yes - Cardiac Exam Anesthetic Concerns: irregular rhythm - Pre-Operative Health Status ASA Pre-Surgery Classification: ASA3 Proposed Anesthetic Plan: MAC - Pulmonary Hx Asthma: No COPD: No Hx Pneumonia: No - Cardiovascular System Hx Hypertension: Yes Hx Cardia Arrhythmia: Yes (Atrial Firbrillation) Hx Heart Murmur: Yes (as a child) - Endocrine Hx End Stage Renal Disease: No
--- NOTE | 2018-09-09 08:15 | Anesthesia Day of Surgery ---
Anesthesia Day of Surgery - Day of Surgery Patient Examined: Yes Patient H&P Reviewed: Yes Patient is NPO: Yes Beta Blockers: Yes Cardiac Clearance: No Pulmonary Clearance: No
[2018-09-09] MEDS: HALFPRIN EC PO SCH (09:51)
[2018-09-09] MEDS: ZESTRIL PO SCH (09:51)
[2018-09-09] MEDS: CORDARONE PO SCH (09:51)
[2018-09-09] MEDS: ELIQUIS PO SCH (09:51)
[2018-09-09] MEDS: SODIUM CHLORIDE FLUSH SYRINGE 10 ML IV SCH (09:52)
--- NOTE | 2018-09-09 10:57 | Post Anesthesia Evaluation ---
- Post Anesthesia Evaluation Patient Participated: Yes Airway Patent: Yes Stable Respiratory Function: Yes Nausea/Vomiting: No Temp > 96.8F: Yes Pain Manageable: Yes Adequeate Hydration: Yes Anesthesia Complications: No
--- NOTE | 2018-09-09 11:17 | Progress Note ---
Hospitalist Physical - Constitutional Vitals: Temp Pulse Resp BP Pulse Ox 97.4 F L 47 L 16 111/41 98 09/09/18 10:22 09/09/18 10:22 09/09/18 10:22 09/09/18 10:22 09/09/18 10:22 General appearance: Present: no acute distress Results - Labs CBC & Chem 7: 09/05/18 02:34 09/06/18 03:40 Labs: Laboratory Last Values WBC 9.5 K/mm3 (4.5-11.0) 09/05/18 02:34 RBC 4.58 M/mm3 (3.65-5.03) 09/05/18 02:34 Hgb 13.4 gm/dl (10.1-14.3) 09/05/18 02:34 Hct 39.8 % (30.3-42.9) 09/05/18 02:34 MCV 87 fl (79-97) 09/05/18 02:34 MCH 29 pg (28-32) 09/05/18 02:34 MCHC 34 % (30-34) 09/05/18 02:34 RDW 14.8 % (13.2-15.2) 09/05/18 02:34 Plt Count 194 K/mm3 (140-440) 09/05/18 02:34 Lymph % (Auto) 31.4 % (13.4-35.0) 09/05/18 02:34 [place] % (Auto) 5.3 % (0.0-7.3) 09/05/18 02:34 Eos % (Auto) 3.4 % (0.0-4.3) 09/05/18 02:34 Baso % (Auto) 0.7 % (0.0-1.8) 09/05/18 02:34 Lymph # 3.0 K/mm3 (1.2-5.4) 09/05/18 02:34 [place] # 0.5 K/mm3 (0.0-0.8) 09/05/18 02:34 Eos # 0.3 K/mm3 (0.0-0.4) 09/05/18 02:34 Baso # 0.1 K/mm3 (0.0-0.1) 09/05/18 02:34 Seg Neutrophils % 59.2 % (40.0-70.0) 09/05/18 02:34 Seg Neutrophils # 5.6 K/mm3 (1.8-7.7) 09/05/18 02:34 PT 13.0 Sec. (12.2-14.9) 09/05/18 02:34 INR 0.93 (0.87-1.13) 09/05/18 02:34 APTT 21.6 Sec. (24.2-36.6) L 09/05/18 02:34 Sodium 138 mmol/L (137-145) 09/06/18 03:40 Potassium 4.2 mmol/L (3.6-5.0) 09/06/18 03:40 Chloride 100.7 mmol/L (98-107) 09/06/18 03:40 Carbon Dioxide 25 mmol/L (22-30) 09/06/18 03:40 Anion Gap 17 mmol/L 09/06/18 03:40 BUN 11 mg/dL (7-17) 09/06/18 03:40 Creatinine 0.7 mg/dL (0.7-1.2) 09/06/18 03:40 Estimated GFR > 60 ml/min 09/06/18 03:40 BUN/Creatinine Ratio 16 % 09/06/18 03:40 Glucose 129 mg/dL (65-100) H 09/06/18 03:40 Hemoglobin A1c 5.9 % (4-6) 09/05/18 04:56 Calcium 9.4 mg/dL (8.4-10.2) 09/06/18 03:40 Magnesium 2.00 mg/dL (1.7-2.3) 09/05/18 02:34 Total Creatine Kinase 85 units/L (30-135) 09/05/18 02:34 CK-MB (CK-2) 2.2 ng/mL (0.0-4.0) 09/05/18 02:34 CK-MB (CK-2) Rel Index 2.5 (0-4) 09/05/18 02:34 Troponin T < 0.010 ng/mL (0.00-0.029) 09/05/18 10:10 TSH 3.740 mlU/mL (0.270-4.200) 09/05/18 02:34 Free T4 1.60 ng/dL (0.76-1.46) H 09/05/18 02:34 Thyroxine (T4) 8.9 ug/dL (4.0-12.0) 09/08/18 11:28 Active Medications - Current Medications Current Medications: Generic Name Dose Route Start Last Admin Trade Name Freq PRN Reason Stop Dose Admin Acetaminophen 650 mg 09/05/18 04:22 Tylenol PO Q4H PRN Pain MILD(1-3)/Fever >100.5/MCKENNA Acetaminophen/Hydrocodone Bitart 1 each 09/05/18 04:22 [place] 5/325 PO Q6H PRN Pain, Moderate (4-6) Amiodarone HCl 200 mg 09/05/18 13:00 09/09/18 09:51 Cordarone PO 200 mg BID MAURISIO Administration Apixaban 5 mg 09/07/18 22:00 09/09/18 09:51 Eliquis PO 5 mg Q12HR MAURISIO Administration Protocol Aspirin 81 mg 09/05/18 13:00 09/09/18 09:51 Halfprin Ec PO 81 mg QDAY MAURISIO Administration Digoxin 0.25 mg 09/08/18 17:00 09/08/18 18:42 Lanoxin PO 0.25 mg DAILY@1700 MAURISIO Administration Sodium Chloride 500 mls @ 50 mls/hr 09/07/18 09:00 09/09/18 08:00 Nacl 0.9% 500 Ml IV 50 mls/hr DIRECT MAURISIO Administration Sodium Chloride 500 mls @ 50 mls/hr 09/09/18 08:00 Nacl 0.9% 500 Ml IV 09/09/18 12:00 DIRECT MAURISIO Lisinopril 5 mg 09/07/18 11:00 09/09/18 09:51 Zestril PO 5 mg QDAY MAURISIO Administration Metoprolol Tartrate 5 mg 09/05/18 12:45 09/06/18 07:26 Lopressor IV 5 mg Q6HR PRN Administration HR >130 Metoprolol Tartrate 50 mg 09/07/18 11:00 09/09/18 03:59 Lopressor PO 50 mg Q8H MAURISIO Administration Morphine Sulfate 2 mg 09/05/18 04:22 Morphine IV Q4H PRN Pain, Moderate (4-6) Ondansetron HCl 4 mg 09/05/18 04:22 Zofran IV Q8H PRN Nausea And Vomiting Sodium Chloride 10 ml 09/05/18 10:00 09/09/18 09:52 Sodium Chloride Flush Syringe 10 Ml IV 10 ml BID MAURISIO Administration Sodium Chloride 10 ml 09/05/18 04:22 Sodium Chloride Flush Syringe 10 Ml IV PRN PRN LINE FLUSH
[2018-09-09 12:13] VITALS: BP 113/54
--- NOTE | 2018-09-09 12:47 | Discharge Summary ---
Providers - Providers Date of Admission: 09/05/18 04:22 Attending physician: MARICEL OGLESBY MD 09/05/18 04:27 Consult to Physician [CONS] Routine Comment: Dr. Lara came to see pt @ 09:30am- [facility] Consulting Provider: MARZENA JAMES Physician Instructions: Reason For Exam: new atrial fib with rvr 09/07/18 10:13 Consult to Cardiac Rehabilitation [CONS] Routine Reason For Exam: Cardiac Rehab Evaluation [facility] Hospital[facility] Condition: Fair Hospital course: 52-year-old woman with past medical history hypertension, current every day smoker. She presented with chest pain and palpitations. Diagnoses A. fib with RVR Hypercoagulable state Acute systolic heart failure, EF 35% Hospital course Patient status post cath, 09/07/18, no significant stenosis noted The patient's heart rate has been labile, and hard to control with oral medications. She received ERIN and cardioversion 09/09. Thyroid function tests were normal. Her medications are optimized for atrial fibrillation, she has put on anticoagulants, her meds optimized for heart failure. She is to follow-up in cardiology clinic upon discharge. Disposition: TO HOME OR SELFCARE Time spent for discharge: 33 mins Core Measure Documentation - Palliative Care Palliative Care/ Comfort Measures: Not Applicable - Core Measures Any of the following diagnoses?: heart failure - Heart Failure Discharge Requirements DANIELE/ARB for LVSD if EF <40%: Yes Beta rosa at discharge: Yes Exam - Constitutional Vitals: Temp Pulse Resp BP Pulse Ox 98.4 F 52 L 16 113/54 96 09/09/18 12:12 09/09/18 12:12 09/09/18 12:12 09/09/18 12:12 09/09/18 12:12 General appearance: Present: no acute distress, well-nourished - EENT Eyes: Present: PERRL ENT: hearing intact, clear oral mucosa - Neck Neck: Present: supple, normal ROM - Respiratory Respiratory effort: normal Respiratory: bilateral: CTA - Cardiovascular Heart Sounds: Present: S1 & S2. Absent: rub, click - Extremities Extremities: pulses symmetrical, No edema Peripheral Pulses: within normal limits - Abdominal General gastrointestinal: Present: soft, non-tender, non-distended, normal bowel sounds Female genitourinary: Present: normal - Integumentary Integumentary: Present: clear, warm, dry - Musculoskeletal Musculoskeletal: gait normal, strength equal bilaterally - Psychiatric Psychiatric: appropriate mood/affect, intact judgment & insight - Neurologic Neurologic: CNII-XII intact, moves all extremities Plan Follow up with: [facility] PORFIRIO [Primary Care Provider] - 3-5 Days Prescriptions: Aspirin EC [Aspirin Enteric Coated TAB] 81 mg PO QDAY #30 tablet Amiodarone [Cordarone 200 MG TAB] 200 mg PO BID #60 tablet Apixaban [Eliquis] 5 mg PO Q12HR #30 tablet Digoxin [Lanoxin] 0.25 mg PO DAILY@1700 #30 tablet Metoprolol [Lopressor TAB] 50 mg PO Q8H #90 tablet Lisinopril [Zestril TAB] 5 mg PO QDAY #30 tablet
[2018-09-09] MEDS: LANOXIN PO SCH (17:24)
== END 2018-09-09 18:33 | disposition home or self-care (01) | DRG 286 ==
LOC: ED 00:41 → CC1 04:22 → 4A 09-06 14:49
PROVIDERS: ADMIT Internal Medicine; ATTEND Internal Medicine
PROC: 4A023N7 Measurement of Cardiac Sampling and Pressure, Left Heart, Percutaneous Approach (ICD-10-PCS; principal; 2018-09-07)
PROC: B2151ZZ Fluoroscopy of Left Heart using Low Osmolar Contrast (ICD-10-PCS; 2018-09-07)
PROC: B2111ZZ Fluoroscopy of Multiple Coronary Arteries using Low Osmolar Contrast (ICD-10-PCS; 2018-09-07)
DX: I11.0 Hypertensive heart disease with heart failure (principal); I50.21 Acute systolic (congestive) heart failure; Z68.41 Body mass index [BMI] 40.0-44.9, adult; D68.59 Other primary thrombophilia; I42.0 Dilated cardiomyopathy; Z90.49 Acquired absence of other specified parts of digestive tract; F17.200 Nicotine dependence, unspecified, uncomplicated; I48.91 Unspecified atrial fibrillation; E66.01 Morbid (severe) obesity due to excess calories; Z71.3 Dietary counseling and surveillance; Z98.51 Tubal ligation status; R73.9 Hyperglycemia, unspecified; Z71.6 Tobacco abuse counseling; E05.90 Thyrotoxicosis, unspecified without thyrotoxic crisis or storm
CPT/HCPCS: 36415; 71045; 80048; 82550; 82553; 83036; 83735; 84436; 84439; 84443; 84484; 85025; 85610; 85730; 86800; 93005; 93010; 93306; 93312; 93320; 93325; 93458; 96374; 96375; G0378; C1760; C1894; J0282; J1160; J1644; J1650; J2250; J2704; J3010; J7040; J7060; Q9967

== ENCOUNTER 2020-03-02 10:01 | Observation (INO) | payer SELFPAY ==
[2020-03-02 11:17] LABS: Basophils # (Auto) 0.1 K/mm3 (0.0-0.1); Basophils % (Auto) 1.1 % (0.0-1.8); Eosinophils # (Auto) 0.2 K/mm3 (0.0-0.4); Eosinophils % (Auto) 4.9 % (0.0-4.3); Hematocrit 42.5 % (30.3-42.9); Hemoglobin 13.6 gm/dl (10.1-14.3); Lymphocytes # (Auto) 1.3 K/mm3 (1.2-5.4); Lymphocytes % (Auto) 28.4 % (13.4-35.0); Mean Corpuscular HGB Conc 32 % (30-34); Mean Corpuscular Volume 90 fl (79-97); Monocytes # (Auto) 0.3 K/mm3 (0.0-0.8); Monocytes % (Auto) 7.3 % (0.0-7.3); Platelet Count 141 K/mm3 (140-440); Red Blood Count 4.74 M/mm3 (3.65-5.03)
[2020-03-02 11:19] LABS: Red Cell Distribution Width 20.7 % (13.2-15.2)
[2020-03-02] MEDS ORDERED: SODIUM CHLORIDE 0.9% 500 ML 500 ML IV ONE ×2 (11:29→12:17)
--- NOTE | 2020-03-02 11:32 | Emergency Department Report ---
ED General Adult HPI - General Chief complaint: Medical Clearance Stated complaint: KIDNEY FAILURE Time Seen by Provider: 03/02/20 11:25 Source: patient Mode of arrival: Ambulatory Limitations: No Limitations - History of Present Illness Initial comments: Patient is a 54-year-old female with a past medical history of hypertension and congestive heart failure (EF 35%) who saw her train attendant 4 days ago for routine visit after being ill several weeks ago and patient was told to come in because she has new kidney failure. Patient states that approximately 3 weeks ago she started having nausea with dry heaves and decreased appetite. This lasted approximately 2 weeks but the patient has been feeling back to normal for the last week and states she feels fine. She denies any chest pain shortness of breath fevers chills cough cold or congestion. Patient does state that during the 2 weeks that she was ill she has significant weight loss and went from 270 pounds to 20. Patient was was taken off of her diuretic 4 days ago because of the weight loss and the assumption that she was dehydrated. Patient was called to come to the emergency department today because her laboratory studies were abnormal. - Related Data Home Medications Medication Instructions Recorded Confirmed Last Taken Metoprolol [Lopressor TAB] 50 mg PO BID 03/02/20 03/02/20 03/01/20 Rosuvastatin (Nf) [Crestor] 20 mg PO QHS 03/02/20 03/02/20 03/01/20 Previous Rx's Medication Instructions Recorded Last Taken Type Apixaban [Eliquis] 5 mg PO Q12HR #30 tablet 09/09/18 03/01/20 Rx lisinopriL [Zestril TAB] 5 mg PO QDAY #30 tablet 09/09/18 03/01/20 Rx Allergies Allergy/AdvReac Type Severity Reaction Status Date / Time Sulfa (Sulfonamide Allergy Swelling Verified 09/05/18 00:42 Antibiotics) ED Review of Systems ROS: Stated complaint: KIDNEY FAILURE Other details as noted in HPI Comment: All other systems reviewed and negative ED Past Medical Hx - Past Medical History Previous Medical History?: Yes Hx Hypertension: Yes Hx Congestive Heart Failure: Yes Hx Diabetes: Yes Hx Asthma: No Hx COPD: No - Surgical History Past Surgical History?: Yes Hx Cholecystectomy: Yes Additional Surgical History: tubal ligation - Social History Smoking Status: Never Smoker Substance Use Type: None - Medications Home Medications: Home Medications Medication Instructions Recorded Confirmed Last Taken Type Apixaban [Eliquis] 5 mg PO Q12HR #30 tablet 09/09/18 03/02/20 03/01/20 Rx lisinopriL [Zestril TAB] 5 mg PO QDAY #30 tablet 09/09/18 03/02/20 03/01/20 Rx Metoprolol [Lopressor TAB] 50 mg PO BID 03/02/20 03/02/20 03/01/20 History Rosuvastatin (Nf) [Crestor] 20 mg PO QHS 03/02/20 03/02/20 03/01/20 History ED Physical Exam - General Limitations: No Limitations General appearance: alert, in no apparent distress, other (pleasant) - Head Head exam: Present: atraumatic, normocephalic - Eye Eye exam: Present: normal appearance, PERRL, EOMI - ENT ENT exam: Present: mucous membranes moist - Neck Neck exam: Present: normal inspection - Respiratory Respiratory exam: Present: normal lung sounds bilaterally. Absent: respiratory distress, wheezes, rales, rhonchi - Cardiovascular Cardiovascular Exam: Present: regular rate, normal rhythm, normal heart sounds. Absent: systolic murmur, diastolic murmur, rubs, gallop - GI/Abdominal GI/Abdominal exam: Present: soft, normal bowel sounds. Absent: distended, tenderness, guarding, rebound, rigid - Extremities Exam Extremities exam: Present: normal inspection - Back Exam Back exam: Present: normal inspection - Neurological Exam Neurological exam: Present: alert, oriented X3 - Psychiatric Psychiatric exam: Present: normal affect, normal mood - Skin Skin exam: Present: warm, dry, intact, normal color. Absent: rash ED Course Vital Signs 03/02/20 03/02/20 10:10 11:30 Temperature 98.2 F Pulse Rate 45 L 43 L Respiratory 20 16 Rate Blood Pressure 143/46 Blood Pressure 148/50 [Right] O2 Sat by Pulse 100 100 Oximetry ED Medical Decision Making - Lab Data Result diagrams: 03/02/20 11:02 03/02/20 11:02 Lab Results 03/02/20 03/02/20 03/02/20 Range/Units 11:02 11:02 Unknown WBC 4.7 (4.5-11.0) K/mm3 RBC 4.74 (3.65-5.03) M/mm3 Hgb 13.6 (10.1-14.3) gm/dl Hct 42.5 (30.3-42.9) % MCV 90 (79-97) fl MCH 29 (28-32) pg MCHC 32 (30-34) % RDW 20.7 H (13.2-15.2) % Plt Count 141 (140-440) K/mm3 Lymph % (Auto) 28.4 (13.4-35.0) % [place] % (Auto) 7.3 (0.0-7.3) % Eos % (Auto) 4.9 H (0.0-4.3) % Baso % (Auto) 1.1 (0.0-1.8) % Lymph # (Auto) 1.3 (1.2-5.4) K/mm3 [place] # (Auto) 0.3 (0.0-0.8) K/mm3 Eos # (Auto) 0.2 (0.0-0.4) K/mm3 Baso # (Auto) 0.1 (0.0-0.1) K/mm3 Seg Neutrophils % 58.3 (40.0-70.0) % Seg Neutrophils # 2.7 (1.8-7.7) K/mm3 Sodium 144 (137-145) mmol/L Potassium 3.9 (3.6-5.0) mmol/L Chloride 107.1 H (98-107) mmol/L Carbon Dioxide 22 (22-30) mmol/L Anion Gap 19 mmol/L BUN 50 H (7-17) mg/dL Creatinine 2.3 H (0.6-1.2) mg/dL Estimated GFR 22 ml/min BUN/Creatinine Ratio 22 % Glucose 103 H (65-100) mg/dL Calcium 10.1 (8.4-10.2) mg/dL Total Bilirubin 0.70 (0.1-1.2) mg/dL AST 48 H (5-40) units/L ALT 107 H (7-56) units/L Alkaline Phosphatase 137 H (35-129) units/L Total Protein 7.3 (6.3-8.2) g/dL Albumin 4.2 (3.9-5) g/dL Albumin/Globulin Ratio 1.4 % Urine Color Yellow (Yellow) Urine Turbidity Clear (Clear) Urine pH 5.0 (5.0-7.0) Ur Specific [place] 1.014 (1.003-1.030) Urine Protein <15 mg/dl (Negative) mg/dL Urine Glucose (UA) Neg (Negative) mg/dL Urine Ketones Neg (Negative) mg/dL Urine Blood Neg (Negative) Urine Nitrite Neg (Negative) Urine Bilirubin Neg (Negative) Urine Urobilinogen < 2.0 (<2.0) mg/dL Ur Leukocyte Esterase Tr (Negative) Urine WBC (Auto) 2.0 (0.0-6.0) /HPF Urine RBC (Auto) 1.0 (0.0-6.0) /HPF U Epithel Cells (Auto) 5.0 (0-13.0) /HPF Urine Mucus Few /HPF - Medical Decision Making Patient is a 54-year-old female with congestive heart failure who is presenting with abnormal labs. Patient is train attendant did laboratory studies on Friday and stated that the patient was in renal failure. She does have a significant increase of her BUN/creatinine from her baseline. 08/2018 showed a BUN/creatinine of 11 and 0.7 respectively. Patient will be started on gentle hydration will be admitted for observation. Patient will be consulted on by Dr. Ortiz with our nephrology service. Critical care attestation.: If time is entered above; I have spent that time in minutes in the direct care of this critically ill patient, excluding procedure time. ED Disposition Clinical Impression: Acute kidney injury, Dehydration Disposition: OP ADMIT IP TO THIS HOSP Is pt being admited?: Yes Does the pt Need Aspirin: No Condition: Stable Time of Disposition: 12:51
[2020-03-02 11:34] LABS: Albumin 4.2 g/dL (3.9-5); Calcium 10.1 mg/dL (8.4-10.2)
[2020-03-02 12:15] LABS: Bilirubin,Urine NEG (Negative); Blood,Urine NEG (Negative); Color,Urine Yellow (Yellow); Mucus,Urine FEW /HPF; Protein,Urine <15 mg/dL mg/dL (Negative); Urobilinogen,Urine < 2.0 mg/dL (<2.0)
[2020-03-02] MEDS ORDERED: SODIUM CHLORIDE 0.9% 1000 ML 1,000 ML IV SCH (13:00)
--- NOTE | 2020-03-02 14:11 | History and Physical Report ---
History of Present Illness Date of examination: 03/02/20 Date of admission: 03/02/20 12:51 Chief complaint: Abnormal labs History of present illness: 54 year ol female with a medical history of hypertension and atrial fibrillation admitted with chief complaint of abdominal labs.d abnormal labs. Patient had gone to see her doctor on 02/27 and had she had some labs done. She was called back this morning and was instructed go to the ER to be admitted for further ev aluation. Patient has been on Lasix but was discontinued about 3 weeks ago. At home medications have been reconciled In the ER, her creatinine found to be 2.3. Nephrology has been consulted. Ginna ent has been started on IV hydration Past History Past Medical History: atrial fib, hypertension Social history: smoking (10 cigarettes a day) Medications and Allergies Allergies Allergy/AdvReac Type Severity Reaction Status Date / Time Sulfa (Sulfonamide Allergy Swelling Verified 09/05/18 00:42 Antibiotics) Home Medications Medication Instructions Recorded Confirmed Last Taken Type Apixaban [Eliquis] 5 mg PO Q12HR #30 tablet 09/09/18 03/02/20 03/01/20 Rx lisinopriL [Zestril TAB] 5 mg PO QDAY #30 tablet 09/09/18 03/02/20 03/01/20 Rx Metoprolol [Lopressor TAB] 50 mg PO BID 03/02/20 03/02/20 03/01/20 History Rosuvastatin (Nf) [Crestor] 20 mg PO QHS 03/02/20 03/02/20 03/01/20 History Active Meds: Active Medications Sodium Chloride (Nacl 0.9% 1000 Ml) 1,000 mls @ 75 mls/hr IV DIRECT MAURISIO Exam - Constitutional Vitals: Temp Pulse Resp BP Pulse Ox 98.2 F 43 L 16 148/50 100 03/02/20 10:10 03/02/20 11:30 03/02/20 11:30 03/02/20 11:30 03/02/20 11:30 General appearance: Present: no acute distress, well-nourished - EENT Eyes: Present: PERRL ENT: hearing intact, clear oral mucosa - Neck Neck: Present: supple, normal ROM - Respiratory Respiratory effort: normal Respiratory: bilateral: CTA - Cardiovascular Heart Sounds: Present: S1 & S2. Absent: rub, click - Extremities Extremities: pulses symmetrical, No edema Peripheral Pulses: within normal limits - Abdominal General gastrointestinal: Present: soft, non-tender, non-distended, normal bowel sounds Female genitourinary: Present: normal - Integumentary Integumentary: Present: clear, warm, dry - Musculoskeletal Musculoskeletal: gait normal, strength equal bilaterally - Psychiatric Psychiatric: appropriate mood/affect, intact judgment & insight - Neurologic Neurologic: CNII-XII intact, moves all extremities Results - Labs CBC & Chem 7: 03/02/20 11:02 03/02/20 11:02 Labs: Laboratory Last Values WBC 4.7 K/mm3 (4.5-11.0) 03/02/20 11:02 RBC 4.74 M/mm3 (3.65-5.03) 03/02/20 11:02 Hgb 13.6 gm/dl (10.1-14.3) 03/02/20 11:02 Hct 42.5 % (30.3-42.9) 03/02/20 11:02 MCV 90 fl (79-97) 03/02/20 11:02 MCH 29 pg (28-32) 03/02/20 11:02 MCHC 32 % (30-34) 03/02/20 11:02 RDW 20.7 % (13.2-15.2) H 03/02/20 11:02 Plt Count 141 K/mm3 (140-440) 03/02/20 11:02 Lymph % (Auto) 28.4 % (13.4-35.0) 03/02/20 11:02 [place] % (Auto) 7.3 % (0.0-7.3) 03/02/20 11:02 Eos % (Auto) 4.9 % (0.0-4.3) H 03/02/20 11:02 Baso % (Auto) 1.1 % (0.0-1.8) 03/02/20 11:02 Lymph # (Auto) 1.3 K/mm3 (1.2-5.4) 03/02/20 11:02 [place] # (Auto) 0.3 K/mm3 (0.0-0.8) 03/02/20 11:02 Eos # (Auto) 0.2 K/mm3 (0.0-0.4) 03/02/20 11:02 Baso # (Auto) 0.1 K/mm3 (0.0-0.1) 03/02/20 11:02 Seg Neutrophils % 58.3 % (40.0-70.0) 03/02/20 11:02 Seg Neutrophils # 2.7 K/mm3 (1.8-7.7) 03/02/20 11:02 Sodium 144 mmol/L (137-145) 03/02/20 11:02 Potassium 3.9 mmol/L (3.6-5.0) 03/02/20 11:02 Chloride 107.1 mmol/L (98-107) H 03/02/20 11:02 Carbon Dioxide 22 mmol/L (22-30) 03/02/20 11:02 Anion Gap 19 mmol/L 03/02/20 11:02 BUN 50 mg/dL (7-17) H 03/02/20 11:02 Creatinine 2.3 mg/dL (0.6-1.2) H 03/02/20 11:02 Estimated GFR 22 ml/min 03/02/20 11:02 BUN/Creatinine Ratio 22 % 03/02/20 11:02 Glucose 103 mg/dL (65-100) H 03/02/20 11:02 Calcium 10.1 mg/dL (8.4-10.2) 03/02/20 11:02 Total Bilirubin 0.70 mg/dL (0.1-1.2) 03/02/20 11:02 AST 48 units/L (5-40) H 03/02/20 11:02 ALT 107 units/L (7-56) H 03/02/20 11:02 Alkaline Phosphatase 137 units/L (35-129) H 03/02/20 11:02 Total Protein 7.3 g/dL (6.3-8.2) 03/02/20 11:02 Albumin 4.2 g/dL (3.9-5) 03/02/20 11:02 Albumin/Globulin Ratio 1.4 % 03/02/20 11:02 Urine Color Yellow (Yellow) 03/02/20 Unknown Urine Turbidity Clear (Clear) 03/02/20 Unknown Urine pH 5.0 (5.0-7.0) 03/02/20 Unknown Ur Specific [place] 1.014 (1.003-1.030) 03/02/20 Unknown Urine Protein <15 mg/dl mg/dL (Negative) 03/02/20 Unknown Urine Glucose (UA) Neg mg/dL (Negative) 03/02/20 Unknown Urine Ketones Neg mg/dL (Negative) 03/02/20 Unknown Urine Blood Neg (Negative) 03/02/20 Unknown Urine Nitrite Neg (Negative) 03/02/20 Unknown Urine Bilirubin Neg (Negative) 03/02/20 Unknown Urine Urobilinogen < 2.0 mg/dL (<2.0) 03/02/20 Unknown Ur Leukocyte Esterase Tr (Negative) 03/02/20 Unknown Urine WBC (Auto) 2.0 /HPF (0.0-6.0) 03/02/20 Unknown Urine RBC (Auto) 1.0 /HPF (0.0-6.0) 03/02/20 Unknown U Epithel Cells (Auto) 5.0 /HPF (0-13.0) 03/02/20 Unknown Urine Mucus Few /HPF 03/02/20 Unknown [place]/IV: IV Catheter Type [Left INT / Saline Lock Antecubital] Assessment and Plan - Patient Problems (1) Acute kidney injury Current Visit: Yes Status: Acute Plan to address problem: Likely vasomotor nephropathy IV hydration Hold Lasix and lisinopril Continue to monitor renal function closely Nephrology consulted (2) Atrial fibrillation Current Visit: Yes Status: Acute Plan to address problem: Patient takes metoprolol 50 mg twice daily Her heart rate is in the 40s. Hold metoprolol for now. Probably cut down to 25 mg twice daily from tomorrow Cardiology follow-up at discharge if she remains stable Continue Eliquis 5 mg twice daily (3) Hypertension Current Visit: Yes Status: Acute Plan to address problem: Hold lisinopril Start amlodipine for blood pressure control (4) Dehydration Current Visit: Yes Status: Acute Plan to address problem: IV hydration (5) DVT prophylaxis Current Visit: Yes Status: Acute Plan to address problem: Continue home Eliquis
[2020-03-02] MEDS ORDERED: ONDANSETRON 4 MG/2 ML INJ IV PRN (14:14)
[2020-03-02] MEDS ORDERED: ACETAMINOPHEN 325 MG TAB PO PRN (14:14)
[2020-03-02] MEDS: hydrALAZINE 25 MG TAB PO SCH (22:50)
[2020-03-02] MEDS: APIXABAN 5 MG TAB PO SCH (22:50)
[2020-03-02 23:14] LABS: Creatinine,Urine 101.7 mg/dL (0.1-20.0)
[2020-03-03 01:54] LABS: Basophils % (Auto) 0.5 % (0.0-1.8); Eosinophils # (Auto) 0.2 K/mm3 (0.0-0.4); Eosinophils % (Auto) 4.1 % (0.0-4.3); Hematocrit 32.2 % (30.3-42.9); Hemoglobin 10.2 gm/dl (10.1-14.3); Lymphocytes # (Auto) 1.9 K/mm3 (1.2-5.4); Lymphocytes % (Auto) 39.6 % (13.4-35.0); Mean Corpuscular HGB Conc 32 % (30-34); Mean Corpuscular Volume 90 fl (79-97); Monocytes # (Auto) 0.5 K/mm3 (0.0-0.8); Monocytes % (Auto) 10.6 % (0.0-7.3); Platelet Count 112 K/mm3 (140-440); Red Blood Count 3.57 M/mm3 (3.65-5.03)
[2020-03-03 02:02] LABS: Red Cell Distribution Width 20.7 % (13.2-15.2)
[2020-03-03 02:29] LABS: Albumin 3.3 g/dL (3.9-5)
[2020-03-03] MEDS: hydrALAZINE 25 MG TAB PO SCH ×2 (07:07→14:44)
[2020-03-03] MEDS ORDERED: SODIUM CHLORIDE 0.45% 1000 ML 1,000 ML IV SCH (09:00)
[2020-03-03] MEDS: APIXABAN 5 MG TAB PO SCH (09:03)
--- NOTE | 2020-03-03 10:47 | Consultation ---
History of Present Illness - Reason for Consult Consult date: 03/03/20 acute renal failure Requesting physician: AMISH FARLEY - History of Present Illness This is a 54 yo CF with past medical history of hypertension, A-fib, b/l LE edema treated with lasix, who presents to ER with complains of abnormal labs. Pt had outpatient labs done on 02/27 and was told to have worsening renal function. Labs in ER showed elevated BUN/Cr at 50/2.3mg/dl for which renal consult is requested. Pt states that her lasix was discontinued about 3 weeks ago d/t abnormal renal function at that time. Pt denies previous h/o renal disease, no recent NSAIDs, IV contrast exposure reported. Previous Cr was 0.7 in 08/2018. Past History Past Medical History: atrial fib, hypertension Social history: smoking (10 cigarettes a day) Medications and Allergies Allergies Allergy/AdvReac Type Severity Reaction Status Date / Time Sulfa (Sulfonamide Allergy Swelling Verified 09/05/18 00:42 Antibiotics) Home Medications Medication Instructions Recorded Confirmed Last Taken Type Apixaban [Eliquis] 5 mg PO Q12HR #30 tablet 09/09/18 03/02/20 03/01/20 Rx lisinopriL [Zestril TAB] 5 mg PO QDAY #30 tablet 09/09/18 03/02/20 03/01/20 Rx Metoprolol [Lopressor TAB] 50 mg PO BID 03/02/20 03/02/20 03/01/20 History Rosuvastatin (Nf) [Crestor] 20 mg PO QHS 03/02/20 03/02/20 03/01/20 History Active Meds: Active Medications Acetaminophen (Tylenol) 650 mg PO Q4H PRN PRN Reason: Pain MILD(1-3)/Fever >100.5/MCKENNA Apixaban (Eliquis) 5 mg PO Q12HR [facility]; Protocol Last Admin: 03/03/20 09:03 Dose: 5 mg Documented by: Atorvastatin Calcium (Lipitor) 40 mg PO QHS [facility] Last Admin: 03/02/20 22:50 Dose: 40 mg Documented by: Hydralazine HCl (Apresoline) 25 mg PO Q8HR [facility] Last Admin: 03/03/20 07:07 Dose: Not Given Documented by: Sodium Chloride (Nacl 0.45% 1000 Ml) 1,000 mls @ 75 mls/hr IV DIRECT MAURISIO Ondansetron HCl (Zofran) 4 mg IV Q8H PRN PRN Reason: Nausea And Vomiting Last Admin: 03/03/20 05:16 Dose: 4 mg Documented by: Sodium Chloride (Sodium Chloride Flush Syringe 10 Ml) 10 ml IV BID MAURISIO Last Admin: 03/03/20 09:03 Dose: 10 ml Documented by: Sodium Chloride (Sodium Chloride Flush Syringe 10 Ml) 10 ml IV PRN PRN PRN Reason: LINE FLUSH Review of Systems All systems: negative Constitutional: weakness Exam - Vital Signs Vital signs: Vital Signs Temp Pulse Resp BP Pulse Ox 98.2 F 45 L 20 143/46 100 03/02/20 10:10 03/02/20 10:10 03/02/20 10:10 03/02/20 10:10 03/02/20 10:10 - General Appearance General appearance: well-developed, well-nourished, appears stated age EENT: ATNC, PERRL, mucous membranes moist Neck: Present: neck supple Respiratory: Clear to Ascultation Heart: regular, S1S2 Gastrointestinal: Present: normoactive bowel sounds, obese Integumentary: no rash, other (+ edema ) Neurologic: no focal deficit, alert and oriented x3, strength 5/5, CN 3-12 intact Psychiatric: mood/affect appropriate, cooperative Results - Lab Results 03/03/20 00:55 03/03/20 00:55 Most recent lab results Calcium 9.0 mg/dL (8.4-10.2) 03/03/20 00:55 Urine Creatinine 101.7 mg/dL (0.1-20.0) H 03/02/20 Unknown Urine Sodium 23 mmol/L 03/02/20 Unknown Urine Total Protein 15 mg/dL (5-11.8) H 03/02/20 Unknown Assessment and Plan - Patient Problems (1) Acute kidney injury Current Visit: Yes Status: Acute Plan to address problem: acute kidney injury most likely 2/2 pre-renal azotemia in the setting of recent diuretic therapy, FeNA is 0.3%, UA showed no evidence of hematuria/proteinuria to suggest acute glomerular injury. renal function marginally improved on IVF, changed to 1/2 NS given developing hypernatremia/hyperchloremic met acidosis. Avoid nephrotoxins, IV contrast, NSAIDS, cont to hold lasix/DANIELE-I for now. will montior lytes and renal parameters closely and make further recommendations (2) Hypernatremia Current Visit: Yes Status: Acute Plan to address problem: IVF was changed to 1/2 NS (3) Abnormal liver function Current Visit: Yes Status: Acute Plan to address problem: LFTs trending down (4) Atrial fibrillation Current Visit: Yes Status: Acute Plan to address problem: BB on hold d/t bradycardia with HR around 40s. cont anticoagulation with eliquis
--- NOTE | 2020-03-03 11:38 | Discharge Summary ---
Providers - Providers Date of Admission: 03/02/20 12:51 Date of discharge: 03/03/20 Attending physician: IVONNE DE LA TORRE 03/02/20 12:46 Consult to Physician [CONS] Urgent Comment: Consulting Provider: PATRICIA AGUILAR Physician Instructions: Reason For Exam: new onset renal insuff Primary care physician: OZZIE HERRERA Hospitalization Condition: Stable Hospital course: 54 year ol female with a medical history of hypertension and atrial fibrillation admitted with chief complaint of abdominal labs.d abnormal labs. Patient had gone to see her doctor on 02/27 and had she had some labs done. She was called back this morning and was instructed go to the ER to be admitted for further evaluation. Patient has been on Lasix but was discontinued about 3 weeks ago. At home medications have been reconciled In the ER, her creatinine found to be 2.3. Nephrology has been consulted. Patient has been started on IV hydration Her lisinopril has been held and her cr is 1.9. She will be discharged to follow up with go cart mechanic in the office. She will continue to elia monitored off lisinopril for now. Due to bradycardia, her metoprolol will be decreased by 50%. She will follow up with her wireless sales expert Disposition: [id number] TO HOME OR SELFCARE - Discharge Diagnoses (1) Acute kidney injury Status: Acute (2) Atrial fibrillation Status: Acute (3) Hypertension Status: Acute (4) Dehydration Status: Acute (5) DVT prophylaxis Status: Acute Core Measure Documentation - Palliative Care Palliative Care/ Comfort Measures: Not Applicable - Core Measures Any of the following diagnoses?: none Exam - Constitutional Vitals: Temp Pulse Resp BP Pulse Ox 98.0 F 50 L 18 119/41 95 03/03/20 06:20 03/03/20 06:20 03/03/20 06:20 03/03/20 06:20 03/03/20 06:20 General appearance: Present: no acute distress, well-nourished - EENT Eyes: Present: PERRL ENT: hearing intact, clear oral mucosa - Neck Neck: Present: supple, normal ROM - Respiratory Respiratory effort: normal Respiratory: bilateral: CTA - Cardiovascular Heart Sounds: Present: S1 & S2. Absent: rub, click - Extremities Extremities: pulses symmetrical, No edema Peripheral Pulses: within normal limits - Abdominal General gastrointestinal: Present: soft, non-tender, non-distended, normal bowel sounds Female genitourinary: Present: normal - Integumentary Integumentary: Present: clear, warm, dry - Musculoskeletal Musculoskeletal: gait normal, strength equal bilaterally - Psychiatric Psychiatric: appropriate mood/affect, intact judgment & insight - Neurologic Neurologic: CNII-XII intact, moves all extremities Plan Activity: no restrictions Diet: low salt, renal Additional Instructions: Her metoprolol has been decreased by half. Follow-up with cardiology within a week. Follow-up with nephrology for monitoring of kidney function. Lisinopril has been discontinued for now due to impaired kidney function. Follow up with: OZZIE HERRERA JR, MD [Primary Care Provider] - 7 Days PATRICIA AGUILAR MD [Staff Physician] - 7 Days Prescriptions: hydrALAZINE [Apresoline TAB] 25 mg PO Q8HR #90 tablet Metoprolol [Lopressor TAB] 25 mg PO BID #60 tablet
[2020-03-03 14:46] VITALS: BP 110/55
== END 2020-03-03 15:15 | disposition home or self-care (01) ==
LOC: ED 10:01 → 3A 12:51
PROVIDERS: ADMIT Internal Medicine; ATTEND Internal Medicine
DX: N17.9 Acute kidney failure, unspecified (principal); I48.91 Unspecified atrial fibrillation; E86.0 Dehydration; I11.0 Hypertensive heart disease with heart failure; I50.9 Heart failure, unspecified; E11.9 Type 2 diabetes mellitus without complications; Z98.51 Tubal ligation status; Z90.49 Acquired absence of other specified parts of digestive tract; Z79.01 Long term (current) use of anticoagulants; Z79.899 Other long term (current) drug therapy; Z88.2 Allergy status to sulfonamides
CPT/HCPCS: 36415; 80053; 81001; 82570; 84156; 84300; 85025; 93005; 96361; 96374; 99284; A9270; G0378; J2405; J7030; J7040